=== PATIENT | male | born 1990 | race Caucasian/White ===

== ENCOUNTER 2017-04-02 08:33 | Emergency (ER) | payer OTHER, SELFPAY ==
[~2017-04-02] VITALS: Ht 188 cm; Wt 98.6 kg
[~2017-04-02 08:33] MED LIST: ALBUTEROL
[2017-04-02 08:57] VITALS: BP 144/90
[2017-04-02] MEDS ORDERED: ZITHTAB PO (10:36)
[2017-04-02] MEDS ORDERED: TESS100C PO (10:36)
== END 2017-04-02 10:42 | disposition home or self-care (01) ==
LOC: M ED 08:33
DX: J01.90 Acute sinusitis, unspecified (principal); R05 Cough; Z87.891 Personal history of nicotine dependence; I51.89 Other ill-defined heart diseases; J45.990 Exercise induced bronchospasm; M79.9 Soft tissue disorder, unspecified

== ENCOUNTER → 2019-09-25 | Outpatient (CLI) | payer OTHER ==
[~2019-09-25] MED LIST changes: +TESS100C PO; +ZITHTAB PO
--- NOTE | 2019-09-25 11:52 | REP ---
CHEST, TWO VIEWS: There is no evidence of acute infiltrate. No pleural effusion is seen. The heart is normal in size. The mediastinal silhouette is unremarkable. The visualized osseous structures are intact. IMPRESSION: No acute pulmonary disease. Electronically Signed by Rolando Crook MD 09/25/2019 12:11 P
== END ==
LOC: M LRY 11:12
PROVIDERS: ATTEND Physician Assistant
DX: R03.0 Elevated blood-pressure reading, without diagnosis of hypertension (principal)

== ENCOUNTER → 2019-09-30 | Outpatient (REF) | payer OTHER ==
[2019-09-30 11:15] LABS: BASO # 0.1 10^3/uL (0.0-0.2); BASO % 0.7 % (0.0-1.0); EOS # 0.2 10^3/uL (0.0-0.5); EOS % 2.5 % (0.0-3.0); HEMATOCRIT 46.5 % (42.0-52.0); HEMOGLOBIN 15.9 g/dl (13.5-17.5); LYMPH # 2.1 10^3/uL (1.5-5.0); LYMPH % 26.9 % (24.0-44.0); MEAN CORPUSCULAR HEMOGLOBIN 31.5 pg (27.0-33.0); MEAN CORPUSCULAR HGB CONC 34.2 g/dl (32.0-36.5); MEAN CORPUSCULAR VOLUME 92.3 fl (80.0-96.0); MONO # 0.8 10^3/uL (0.0-0.8); MONO % 10.5 % (0.0-5.0); NEUTROPHILS # 4.5 10^3/uL (1.5-8.5); NEUTROPHILS % 58.9 % (36.0-66.0); PLATELET COUNT, AUTOMATED 331 10^3/uL (150-450); RED BLOOD COUNT 5.04 10^6/uL (4.30-6.10); WHITE BLOOD COUNT 7.7 10^3/uL (4.0-10.0)
[2019-09-30 11:35] LABS: HEMOGLOBIN A1c 5.8 %
[2019-09-30 11:52] LABS: ALBUMIN 4.2 GM/DL (3.2-5.2); ALT/SGPT 66 U/L (12-78); BILIRUBIN,TOTAL 0.6 MG/DL (0.2-1.0); BLOOD UREA NITROGEN 14 MG/DL (7-18); CALCIUM LEVEL 9.3 MG/DL (8.5-10.1); CARBON DIOXIDE LEVEL 27 MEQ/L (21-32); CHLORIDE LEVEL 104 MEQ/L (98-107); CREATININE FOR GFR 0.78 MG/DL (0.70-1.30); FREE T4 1.05 NG/DL (0.76-1.46); GLOMERULAR FILTRATION RATE > 60.0 (>60); GLUCOSE, FASTING 101 MG/DL (70-100); POTASSIUM SERUM 4.5 MEQ/L (3.5-5.1); SODIUM LEVEL 139 MEQ/L (136-145); THYROID STIMULATING HORMONE 0.844 uIU/ML (0.358-3.740); TOTAL 25(OH) VITAMIN D 18.3 NG/ML (30.0-100.0); TOTAL PROTEIN 7.8 GM/DL (6.4-8.2)
== END ==
LOC: M SFHCLERA 09:17
PROVIDERS: ATTEND Physician Assistant
DX: J30.2 Other seasonal allergic rhinitis (principal); R03.0 Elevated blood-pressure reading, without diagnosis of hypertension; Z13.29 Encounter for screening for other suspected endocrine disorder; Z83.3 Family history of diabetes mellitus; Z13.21 Encounter for screening for nutritional disorder

== ENCOUNTER 2021-12-20 16:11 | Emergency (ER) | payer OTHER ==
[~2021-12-20] VITALS: Ht 188 cm; Wt 100.0 kg
[2021-12-20] MEDS ORDERED: KETOROLAC 60MG 2ML VIAL IM ONE (18:10)
[2021-12-20] MEDS ORDERED: BACITRACIN OINTMENT 30GM TUBE TOP ONE (18:30)
[2021-12-20] MEDS ORDERED: BOOSTRIX/ADACEL VACCINE (DIPHTH/PERTUSS/ACELL/TETANUS) 0.5ML SYR IM ONE (18:50)
[2021-12-20 19:00] VITALS: BP 161/98
== END 2021-12-20 19:01 | disposition home or self-care (01) ==
LOC: M ED 16:11
DX: S62.600A Fracture of unspecified phalanx of right index finger, initial encounter for closed fracture (principal); W22.8XXA Striking against or struck by other objects, initial encounter; I10 Essential (primary) hypertension; J45.909 Unspecified asthma, uncomplicated; Y92.9 Unspecified place or not applicable; Y93.9 Activity, unspecified; Y99.0 Civilian activity done for income or pay
CPT/HCPCS: 73110; 73130; 90471; 90715; 96372; 99284; J1885

== ENCOUNTER → 2022-01-02 | Outpatient (CLI) | payer OTHER | LOC: M SOG 09:24 | PROVIDERS: ATTEND Orthopaedic Surgery Hand Surgery | DX: S62.600D Fracture of unspecified phalanx of right index finger, subsequent encounter for fracture with routine healing (principal) ==

== ENCOUNTER → 2022-01-16 | Outpatient (CLI) | payer OTHER | LOC: M SOG 07:59 | PROVIDERS: ATTEND Physician Assistant | DX: S62.600D Fracture of unspecified phalanx of right index finger, subsequent encounter for fracture with routine healing (principal) ==

== ENCOUNTER → 2022-02-06 | Outpatient (CLI) | payer OTHER | LOC: M SOG 09:39 | PROVIDERS: ATTEND Physician Assistant | DX: S62.600D Fracture of unspecified phalanx of right index finger, subsequent encounter for fracture with routine healing (principal) ==